=== PATIENT | male | born 1970 | race Hispanic/Latino ===

== ENCOUNTER 2017-11-13 00:56 | Emergency (ER) | payer OTHER ==
[~2017-11-13] VITALS: Ht 167.6 cm; Wt 86.0 kg
[2017-11-13 01:03] VITALS: BP 164/105
[2017-11-13] MEDS ORDERED: MEDROL DOSEPAK4 MG PO (01:51)
[2017-11-13] MEDS ORDERED: ATARAX,VISTARIL50 MG PO (01:51)
== END 2017-11-13 02:15 | disposition home or self-care (01) ==
LOC: EME 00:56
DX: L23.7 Allergic contact dermatitis due to plants, except food (principal)
CPT/HCPCS: 99281; 99283; J7512; Q0177